=== PATIENT | female | born 1955 | race Native Hawaiian/Other Pacific Islander ===

== ENCOUNTER 2020-10-07 09:28 | Inpatient (IN) | payer SELFPAY ==
[~2020-10-07] VITALS: Ht 149.8 cm; Wt 53.6 kg
[2020-10-07] MEDS ORDERED: KETOROLAC 30 MG/ML VIAL IVP STA (09:50)
[2020-10-07] MEDS ORDERED: hydrALAZINE (APESOLINE) 20 MG/ML VIAL IV STA (09:50)
[2020-10-07] MEDS ORDERED: diphenhydrAMINE 50 MG/ML INJ (BENADRYL) IVP STA (09:50)
--- NOTE | 2020-10-07 09:58 | ED General ---
General Chief Complaint: Head/Cervical Problems Stated Complaint: HEADACHE; COVID+ Nursing Triage Note: Patient reports she tested positive for COVID-19 on Thursday, reports severe headache started yesterday. She also reports she has hypertension and is concerned this may be causing her headache. Nursing Sepsis Screen: No Definite Risk Source of Information: Patient History of Present Illness Date Seen by Provider: Oct 07, 2020 Time Seen by Provider: 09:28 Initial Comments 64-year-old female presenting with complaints of severe frontal headache since yesterday. She was tested positive for COVID-19 on Thursday, October 01. She had tried taking Tylenol but it wasn't helping. She was having trouble sleeping because of the headache. She has some phlegm and congestion from the COVID but otherwise has been doing well. She denies any high fevers, chills, nausea, vomiting, diarrhea, burning with urination. She states that the headache is worse when she is standing up. When she gets up to go the bathroom she feels like she's unsteady walking. She has no weakness or numbness to one side of her body. She just feels generally weak. She does take atenolol for her blood pressure and denies missing any doses medication. Allergies and Home Medications Allergies Coded Allergies: egg (Verified Allergy, Unknown, 10/07/20) Home Medications Atenolol 25 Mg Tablet, 25 MG PO DAILY, (Reported) Patient Home Medication List Home Medication List Reviewed: Yes Review of Systems Review of Systems Constitutional: No chills, No diaphoresis, No fever; malaise, weakness (general) EENTM: No ear pain, No blurred vision, No vision loss, No epistaxis, No nose c ongestion Respiratory: cough (mild), phlegm Cardiovascular: no symptoms reported Gastrointestinal: see HPI; No diarrhea, No nausea, No vomiting Genitourinary: no symptoms reported; No dysuria Musculoskeletal: no symptoms reported Skin: no symptoms reported Psychiatric/Neurological: See HPI, Headache; Denies Numbness, Denies Paresthesia; Weakness (general) Past Qhkmvuq-Ovyunl-Ujoyit Hx Past Med/Social Hx: Reviewed Nursing Past Med/Soc Hx Patient Social History Alcohol Use: Denies Use Recreational Drug Use: No Smoking Status: Never a Smoker 2nd Hand Smoke Exposure: No Recent Foreign Travel: No Contact w/Someone Who Travel: No Recent Infectious Disease Expo: No Recent Hopitalizations: No Physical Abuse: No Sexual Abuse: No Mistreated: No Fear: No Seasonal Allergies Seasonal Allergies: No Past Medical History Surgeries: Yes Section Respiratory: No Cardiac: Yes Hypertension Neurological: No Genitourinary: No Gastrointestinal: No Musculoskeletal: No Endocrine: Yes Diabetes, Non-Insulin dep HEENT: No Cancer: No Psychosocial: No Integumentary: No Physical Exam Vital Signs Vital Signs - First Documented 10/07/20 09:37 Temp 36.8 Pulse 76 Resp 18 B/P (MAP) 174/95 (121) Pulse Ox 99 O2 Delivery Room Air Capillary Refill : Less Than 3 Seconds Height, Weight, BMI Height: '" Weight: lbs. oz. kg; 23.00 BMI Method: General Appearance: No Apparent Distress, WD/WN, Anxious HEENT: PERRL/EOMI, Pharynx Normal Neck: Full Range of Motion, Normal Inspection, Non Tender, Supple Respiratory: Chest Non Tender, Lungs Clear, Normal Breath Sounds, No Accessory Muscle Use, No Respiratory Distress Cardiovascular: Regular Rate, Rhythm, No Murmur, Normal Peripheral Pulses Gastrointestinal: Normal Bowel Sounds, No Pulsatile Mass, Non Tender, Soft Rectal: Deferred Extremity: Normal Capillary Refill, Non Tender, No Pedal Edema Neurologic/Psychiatric: Alert, Oriented x3, No Motor/Sensory Deficits, piston maker II- XII Norm as Tested Skin: Normal Color, Warm/Dry Progress/Results/Core Measures Suspected Sepsis Recent Fever Within 48 Hours: No Infection Criteria Present: Documented Infection New/Unexplained Altered Menta: No Sepsis Screen: No Definite Risk SIRS Temperature: Pulse: 76 Respiratory Rate: 18 Laboratory Tests 10/07/20 09:50: White Blood Count 5.9 Blood Pressure 174 /95 Mean: 121 Laboratory Tests 10/07/20 09:50: Creatinine 0.48L, INR Comment 1.0, Platelet Count 211, Total Bilirubin 0.8 Results/Orders Lab Results Laboratory Tests Test 10/07/20 09:50 10/07/20 10:05 Range/Units White Blood Count 5.9 4.3-11.0 10^3/uL Red Blood Count 4.04 L 4.35-5.85 10^6/uL Hemoglobin 12.6 11.5-16.0 G/DL Hematocrit 34 L 35-52 % Mean Corpuscular Volume 85 80-99 FL Mean Corpuscular Hemoglobin 31 25-34 PG Mean Corpuscular Hemoglobin Concent 37 H 32-36 G/DL Red Cell Distribution Width 12.2 10.0-14.5 % Platelet Count 211 130-400 10^3/uL Mean Platelet Volume 8.9 7.4-10.4 FL Immature Granulocyte % (Auto) 1 % Neutrophils (%) (Auto) 67 42-75 % Lymphocytes (%) (Auto) 23 12-44 % Monocytes (%) (Auto) 8 0-12 % Eosinophils (%) (Auto) 1 0-10 % Basophils (%) (Auto) 0 0-10 % Neutrophils # (Auto) 4.0 1.8-7.8 X 10^3 Lymphocytes # (Auto) 1.4 1.0-4.0 X 10^3 Monocytes # (Auto) 0.5 0.0-1.0 X 10^3 Eosinophils # (Auto) 0.0 0.0-0.3 10^3/uL Basophils # (Auto) 0.0 0.0-0.1 10^3/uL Immature Granulocyte # (Auto) 0.0 0.0-0.1 10^3/uL Prothrombin Time 13.0 12.2-14.7 SEC INR Comment 1.0 0.8-1.4 Activated Partial Thromboplast Time 26 24-35 SEC Sodium Level 117 *L 135-145 MMOL/L Potassium Level 3.9 3.6-5.0 MMOL/L Chloride Level 82 L 98-107 MMOL/L Carbon Dioxide Level 23 21-32 MMOL/L Anion Gap 12 5-14 MMOL/L Blood Urea Nitrogen 6 L 7-18 MG/DL Creatinine 0.48 L 0.60-1.30 MG/DL Estimat Glomerular Filtration Rate > 60 BUN/Creatinine Ratio 13 Glucose Level 133 H 70-105 MG/DL Calcium Level 9.1 8.5-10.1 MG/DL Corrected Calcium 8.8 8.5-10.1 MG/DL Total Bilirubin 0.8 0.1-1.0 MG/DL Aspartate Amino Transf (AST/SGOT) 40 H 5-34 U/L Alanine Aminotransferase (ALT/SGPT) 31 0-55 U/L Alkaline Phosphatase 87 40-136 U/L C-Reactive Protein 0.11 <0.50 MG/DL Total Protein 7.0 6.4-8.2 GM/DL Albumin 4.4 3.2-4.5 GM/DL Urine Color PALE YELLOW Urine Clarity CLEAR Urine pH 8.5 5-9 Urine Specific [place] 1.015 L 1.016-1.022 Urine Protein NEGATIVE NEGATIVE Urine Glucose (UA) NEGATIVE NEGATIVE Urine Ketones NEGATIVE NEGATIVE Urine Nitrite NEGATIVE NEGATIVE Urine Bilirubin NEGATIVE NEGATIVE Urine Urobilinogen 0.2 < = 1.0 MG/DL Urine Leukocyte Esterase NEGATIVE NEGATIVE Urine RBC (Auto) 1+ H NEGATIVE Urine RBC 5-10 H /HPF Urine WBC RARE /HPF Urine Squamous Epithelial Cells 0-2 /HPF Urine Crystals PRESENT H /LPF Urine Amorphous Sediment FEW MISAEL URATES H /LPF Urine Bacteria TRACE /HPF Urine Casts NONE /LPF Urine Mucus NEGATIVE /LPF Urine Culture Indicated NO My Orders Orders - FABRIZIO LORD MD Monitor-Rhythm Ecg Trace Only (10/07/20 09:48) Ed Iv/Invasive Line Start (10/07/20 09:48) Cbc With Automated Diff (10/07/20 09:48) Comprehensive Metabolic Panel (10/07/20 09:48) Crp Fs (10/07/20 09:48) Protime With Inr (10/07/20 09:48) Partial Thromboplastin Time (10/07/20 09:48) Ns Iv 1000 Ml (Sodium Chloride 0.9%) (10/07/20 10:00) Ua Culture If Indicated (10/07/20 09:48) Ct Head Wo (10/07/20 09:48) Ketorolac Injection (Toradol Injection) (10/07/20 09:50) Diphenhydramine Injection (Benadryl Inje (10/07/20 09:50) Hydralazine Injection (Apresoline Inject (10/07/20 09:50) Vital Signs/I&O 10/07/20 10/07/20 10/07/20 10/07/20 09:37 13:00 14:00 15:00 Temp 36.8 36.4 Pulse 76 71 73 Resp 18 16 18 B/P (MAP) 174/95 (121) 141/75 144/86 (105) Pulse Ox 99 100 99 99 O2 Delivery Room Air Room Air Room Air Room Air Capillary Refill : Less Than 3 Seconds Blood Pressure Mean: 121 Progress Note #1: Progress Note Will check basic labs, urinalysis and since she is having complaint of severe headache since yesterday and feeling more unsteady when she gets up since yesterday will obtain a CT head to evaluate for any intracranial hemorrhage or process that may be contributing to her symptoms. Try Toradol 30 mg, Benadryl 25 mg both IV for her headache. Give 1 L NS for hydration in case that is contributing to her symptoms. Hydralazine 5 mg IV for her headache and blood pressure 160-170 systolic range to see if that helps lower her pressure and make any difference with the headache. Progress Note #2: Time: 10:47 Progress Note Labs show stable CBC. Chemistry with hyponatremia at 117. CT head does not show any acute significant abnormality. On recheck the patient she stated she felt better after treatment. Discussed with Dr. Looney about admission for hyponatremia and her COVID positive status. Will fluid restrict patient and give IV fluids of normal saline at 75 mls an hour. Diagnostic Imaging Diagonstic Imaging: CT Plain Films/CT/US/NM/MRI: head Comments NAME: NICK MAE [facility] REC#: [id number] PT STATUS: REG ER : 1955 PHYSICIAN: FABRIZIO LORD MD ADMIT DATE: 10/07/20/ER FS Draft Date of Exam:10/07/20 CT HEAD WO PROCEDURE: CT head without contrast. TECHNIQUE: Multiple contiguous axial images were obtained through the brain without the use of intravenous contrast. Auto Exposure Controls were utilized during the CT exam to meet ALARA standards for radiation dose reduction. INDICATION: Frontal headaches. Hypertension. Positive for COVID. FINDINGS: The ventricles are normal in size, shape, and position. There is no acute parenchymal hemorrhage, edema, or mass. There is no extra-axial mass or hemorrhage. IMPRESSION: No acute abnormality is seen. Dictated on workstation # [id number] Dict: 10/07/20 1022 Trans: 10/07/20 1028 [id number] Interpreted by: OLGA YOON MD Electronically signed by: Departure Communication (Admissions) Time/Spoke to Admitting Phy: 11:[address] Looney on-call for [facility]. We will admit for fluid restriction and normal saline at 75 ml/hr Impression Primary Impression: Frontal headache Additional Impressions: COVID-19 virus infection Elevated blood pressure reading with diagnosis of hypertension Disposition: 30 STILL A PATIENT Condition: Stable Admissions Decision to Admit Reason: Admit from ER (General) Decision to Admit/Date: Oct 07, 2020 Time/Decision to Admit Time: 11:38 Departure-Patient Inst. Referrals: NO,LOCAL PHYSICIAN (PCP/Family) Primary Care Physician FABRIZIO LORD MD Oct 07, 2020 09:58
[2020-10-07] MEDS ORDERED: NS IV 1000 ML 1,000 ML IV SCH ×2 (10:00→14:15)
[2020-10-07] MEDS ORDERED: ATEN25TA PO (10:00)
[2020-10-07 10:09] LABS: HEMATOCRIT 34 % (35-52); HEMOGLOBIN 12.6 G/DL (11.5-16.0); MEAN CORPUSCULAR HEMOGLOBIN 31 PG (25-34); MEAN CORPUSCULAR HGB CONC 37 G/DL (32-36); MEAN CORPUSCULAR VOLUME 85 FL (80-99); MEAN PLATELET VOLUME 8.9 FL (7.4-10.4); PLATELET COUNT 211 10^3/uL (130-400); WHITE BLOOD COUNT 5.9 10^3/uL (4.3-11.0)
[2020-10-07 10:10] LABS: BASOPHILS % (AUTO) 0 % (0-10); EOSINOPHILS % (AUTO) 1 % (0-10); LYMPHOCYTES # (AUTO) 1.4 X 10^3 (1.0-4.0); LYMPHOCYTES % (AUTO) 23 % (12-44); MONOCYTES # (AUTO) 0.5 X 10^3 (0.0-1.0); MONOCYTES % (AUTO) 8 % (0-12); NEUTROPHILS % (AUTO) 67 % (42-75)
[2020-10-07 10:21] LABS: BILIRUBIN,URINE NEGATIVE (NEGATIVE); CLARITY,URINE CLEAR; COLOR,URINE PALE YELLOW; GLUCOSE, URINE (UA) NEGATIVE (NEGATIVE); KETONES,URINE NEGATIVE (NEGATIVE); LEUKOCYTE ESTERASE ,URINE NEGATIVE (NEGATIVE); NITRITE,URINE NEGATIVE (NEGATIVE); PH,URINE 8.5 (5-9); PROTEIN,URINE NEGATIVE (NEGATIVE)
[2020-10-07 10:22] LABS: BACTERIA,URINE TRACE /HPF; SQUAMOUS EPITHELIAL CELL,UR 0-2 /HPF; WBC,URINE RARE /HPF
[2020-10-07 10:23] LABS: AMORPHOUS SEDIMENT,UR FEW AMOR URATES /LPF
[2020-10-07 10:23] LABS: POTASSIUM 3.9 MMOL/L (3.6-5.0)
[2020-10-07 10:24] LABS: ALANINE AMINOTRANSFERASE 31 U/L (0-55); ALBUMIN 4.4 GM/DL (3.2-4.5); ALKALINE PHOSPHATASE 87 U/L (40-136); BILIRUBIN,TOTAL 0.8 MG/DL (0.1-1.0); BUN/CREATININE RATIO 13; CALCIUM 9.1 MG/DL (8.5-10.1); CARBON DIOXIDE 23 MMOL/L (21-32); CREATININE SERUM 0.48 MG/DL (0.60-1.30); GFR ESTIMATED > 60; GLUCOSE 133 MG/DL (70-105)
[2020-10-07 10:25] LABS: CHLORIDE 82 MMOL/L (98-107); SODIUM 117 MMOL/L (135-145)
--- NOTE | 2020-10-07 10:30 | Diagnostic Imaging Report ---
PROCEDURE: CT head without contrast. TECHNIQUE: Multiple contiguous axial images were obtained through the brain without the use of intravenous contrast. Auto Exposure Controls were utilized during the CT exam to meet ALARA standards for radiation dose reduction. INDICATION: Frontal headaches. Hypertension. Positive for COVID. FINDINGS: The ventricles are normal in size, shape, and position. There is no acute parenchymal hemorrhage, edema, or mass. There is no extra-axial mass or hemorrhage. IMPRESSION: No acute abnormality is seen. Dictated by: Dictated on workstation # [id number]
--- NOTE | 2020-10-07 14:07 | History & Physical-Hospitalist ---
History of Present Illness HPI/Chief Complaint CC: Hyponatremia HPI: This is a 64yo clinic patient of [facility] who was dx with COVID 7 days ago and presented to the ER with ANGLIN and fatigue and found to have sodium level at 117. Patient was deemed in need of admit for fluid restriction and IVF of NS. No med use to cause hyponatremia. No O2 used. Source: patient, RN/MD Exam Limitations: clinical condition Date Seen 10/07/20 Time Seen by a Provider: 14:00 Attending Physician Jasmin Looney DO PCP No,Local Physician Referring Physician Date of Admission Oct 07, 2020 at 13:50 Home Medications & Allergies Home Medications Reviewed patient Home Medication Reconciliation performed by pharmacy medication reconciliations facility environmental technician and/or nursing. Patients Allergies have been reviewed. Allergies Allergies Coded Allergies egg (Verified Allergy, Unknown, 10/07/20) Past Hgdhkkz-Stutyh-Whgxei Hx Past Med/Social Hx: Reviewed Nursing Past Med/Soc Hx, Reviewed and Corrections made Patient Social History Marrital Status: Alcohol Use: Denies Use Recreational Drug Use: No Smoking Status: Never a Smoker 2nd Hand Smoke Exposure: No Recent Foreign Travel: No Contact w/other who traveled: No Recent Hopitalizations: No Recent Infectious Disease Expo: No Seasonal Allergies Seasonal Allergies: No Past Medical History Surgeries: Section Cardiac: Hypertension Endocrine: Diabetes, Non-Insulin dep Review of Systems Constitutional: see HPI, malaise, weakness Psychiatric/Neurological: Headache Physical Exam Physical Exam Vital Signs Vital Signs - First Documented 10/07/20 09:37 Temp 36.8 Pulse 76 Resp 18 B/P (MAP) 174/95 (121) Pulse Ox 99 O2 Delivery Room Air Capillary Refill : Less Than 3 Seconds Height, Weight, BMI Height: '" Weight: lbs. oz. kg; 23.00 BMI Method: General Appearance: No Apparent Distress Eyes: Right Eye Normal Inspection, Right Eye PERRL HEENT: PERRL/EOMI, TMs Normal, Normal ENT Inspection, Pharynx Normal, Moist Mucous Membranes Neck: Full Range of Motion, Normal Inspection, Non Tender Respiratory: Chest Non Tender, Lungs Clear, Normal Breath Sounds, No Accessory Muscle Use, No Respiratory Distress Cardiovascular: Regular Rate, Rhythm, No Edema, No Gallop, No JVD, No Murmur, Normal Peripheral Pulses Gastrointestinal: Normal Bowel Sounds, No Organomegaly, No Pulsatile Mass, Non Tender, Soft Back: Normal Inspection, No CVA Tenderness, No Vertebral Tenderness Extremity: Normal Capillary Refill, Normal Inspection, Normal Range of Motion, Non Tender, No Calf Tenderness, No Pedal Edema Neurologic/Psychiatric: Alert, Oriented x3, No Motor/Sensory Deficits, Normal Mood/Affect Skin: Normal Color, Warm/Dry Lymphatic: No Adenopathy Results Results/Procedures Labs Laboratory Tests 10/07/20 09:50 Patient resulted labs reviewed. Assessment/Plan Admission Diagnosis Assessment: Hyponatremia 117 ANGLIN COVID-19 HTN Plan: Fluid restriction NS at 75cc/hr Lasix 20mg IV x 1 Admission Status: Inpatient Order (span 2 midnights) Reason for Inpatient Admission: severe hyponatremia Diagnosis/Problems Diagnosis/Problems (1) Hyponatremia (2) Hypertension (3) COVID-19 virus infection Status: Acute JASMIN LOONEY DO Oct 07, 2020 14:07
[2020-10-07] MEDS ORDERED: DOCUSATE SODIUM 100 MG (COLACE) CAP PO PRN (14:15)
[2020-10-07] MEDS ORDERED: CALCIUM CARBONATE 500 MG (TUMS) TAB.CHEW PO PRN (14:15)
[2020-10-07] MEDS ORDERED: ONDANSETRON 4 MG (ZOFRAN) ORAL DISSOLVE TAB PO PRN (14:15)
[2020-10-07] MEDS ORDERED: LOPERAMIDE 2 MG (IMODIUM) TABLET PO PRN (14:15)
[2020-10-07] MEDS ORDERED: HYDROcodone/APAP 5 MG/325 MG (LORTAB) TAB PO PRN (14:15)
[2020-10-07] MEDS ORDERED: MELATONIN 3 MG TABLET PO PRN (14:15)
[2020-10-07] MEDS ORDERED: ACETAMINOPHEN 325 MG TABLET PO PRN (14:15)
[2020-10-07] MEDS ORDERED: FUROSEMIDE 40 MG/4 ML INJ (LASIX) IVP NR (14:15)
[2020-10-07] MEDS ORDERED: ACETAMINOPHEN 500 MG TAB (TYLENOL) PO PRN (14:15)
[2020-10-07] MEDS ORDERED: CATHETER FLUSH 10 ML SYR IV PRN (14:15)
[2020-10-07] MEDS ORDERED: diphenhydrAMINE 25 MG TAB (BENADRYL) PO PRN (14:15)
[2020-10-07] MEDS ORDERED: ONDANSETRON 4 MG/2 ML (SDV) Z0FRAN IVP PRN (14:15)
[2020-10-07] MEDS ORDERED: ONDANSETRON 4 MG/2 ML (SDV) Z0FRAN IV PRN (14:15)
[2020-10-07] MEDS: NS IV 1000 ML 1,000 ML IV SCH (14:43)
[2020-10-07 15:00] VITALS: BP 144/86
[2020-10-07 17:04] VITALS: BP 144/86
[2020-10-07 19:34] VITALS: BP 147/82
[2020-10-07] MEDS: SENNA W/DOCUSATE (SENOKOT S) TABLET PO SCH (21:06)
[2020-10-07] MEDS: ENOXAPARIN 40 MG/0.4 ML (LOVENOX) SYR SC SCH (21:07)
[2020-10-08 00:14] VITALS: BP 120/69
[2020-10-08] MEDS: NS IV 1000 ML 1,000 ML IV SCH (03:55)
[2020-10-08 04:00] VITALS: BP 103/63
--- NOTE | 2020-10-08 05:59 | Progress Note - Hospitalist ---
Subjective HPI/CC On Admission Date Seen by Provider: Oct 08, 2020 Time Seen by Provider: 10:00 CC: Hyponatremia HPI: This is a 64yo clinic patient of [facility] who was dx with COVID 7 days ago and presented to the ER with ANGLIN and fatigue and found to have sodium level at 117. Patient was deemed in need of admit for fluid restriction and IVF of NS. No med use to cause hyponatremia. No O2 used. Subjective/Events-last exam Sodium level is much improved at 131 [place]ock IV fluid Room air currently even though she is Covid-positive Effexor 37.5 daily, and Xanax will be ordered since her is upstairs on a ventilator Review of Systems General: Fatigue, Malaise Neurological: Weakness, Incoordination Objective Exam Vital Signs Vital Signs Date Time Temp Pulse Resp B/P (MAP) Pulse Ox O2 Delivery O2 Flow Rate FiO2 10/09/20 08:00 37.0 69 22 131/74 (93) 94 Room Air Capillary Refill : Less Than 3 Seconds General Appearance: No Apparent Distress, WD/WN, Chronically ill Respiratory: Chest Non Tender, Lungs Clear, Normal Breath Sounds, No Accessory Muscle Use, No Respiratory Distress Cardiovascular: Regular Rate, Rhythm, No Edema, No Gallop, No JVD, No Murmur, Normal Peripheral Pulses Results/Procedures Lab Patient resulted labs reviewed. Assessment/Plan Assessment and Plan Assess & Plan/Chief Complaint Assessment: Hyponatremia 117 ANGLIN COVID-19 HTN Plan: Fluid restriction NS at 75cc/hr Lasix 20mg IV x 1 10/08/20: Monitor closely Sodium level monitoring Diagnosis/Problems Diagnosis/Problems (1) Hyponatremia (2) Hypertension (3) COVID-19 virus infection Status: Acute Clinical Quality Measures DVT/VTE Risk/Contraindication: Risk Factor Score Per Nursin RFS Level Per Nursing on Admit: 2=Moderate LILLIAM LUNA DO Oct 08, 2020 05:59
[2020-10-08 06:36] LABS: BASOPHILS % (AUTO) 0 % (0-10); EOSINOPHILS # (AUTO) 0.1 10^3/uL (0.0-0.3); EOSINOPHILS % (AUTO) 3 % (0-10); HEMATOCRIT 35 % (35-52); HEMOGLOBIN 12.3 g/dL (11.5-16.0); LYMPHOCYTES # (AUTO) 1.7 10^3/uL (1.0-4.0); LYMPHOCYTES % (AUTO) 30 % (12-44); MEAN CORPUSCULAR HEMOGLOBIN 31 pg (25-34); MEAN CORPUSCULAR HGB CONC 35 g/dL (32-36); MEAN CORPUSCULAR VOLUME 88 fL (80-99); MEAN PLATELET VOLUME 9.7 fL (9.0-12.2); MONOCYTES # (AUTO) 0.7 10^3/uL (0.0-1.0); MONOCYTES % (AUTO) 11 % (0-12); NEUTROPHILS # (AUTO) 3.2 10^3/uL (1.8-7.8); NEUTROPHILS % (AUTO) 56 % (42-75); PLATELET COUNT 185 10^3/uL (130-400); WHITE BLOOD COUNT 5.7 10^3/uL (4.3-11.0)
[2020-10-08 06:51] LABS: ALBUMIN 3.6 GM/DL (3.2-4.5); CHLORIDE 101 MMOL/L (98-107); POTASSIUM 3.7 MMOL/L (3.6-5.0); SODIUM 131 MMOL/L (135-145)
[2020-10-08 06:52] LABS: CALCIUM 8.5 MG/DL (8.5-10.1)
[2020-10-08 06:53] LABS: GLUCOSE 82 MG/DL (70-105)
[2020-10-08 06:54] LABS: TOTAL PROTEIN 6.5 GM/DL (6.4-8.2)
[2020-10-08 06:55] LABS: BILIRUBIN,TOTAL 0.6 MG/DL (0.1-1.0); CARBON DIOXIDE 19 MMOL/L (21-32)
[2020-10-08 06:57] LABS: ALKALINE PHOSPHATASE 73 U/L (40-136); CREATININE SERUM 0.73 MG/DL (0.60-1.30); GFR ESTIMATED > 60
[2020-10-08 06:58] LABS: BUN/CREATININE RATIO 19
[2020-10-08 07:00] LABS: ALANINE AMINOTRANSFERASE 42 U/L (0-55)
[2020-10-08] MEDS: ENOXAPARIN 40 MG/0.4 ML (LOVENOX) SYR SC SCH ×2 (08:19→19:31)
[2020-10-08 08:30] VITALS: BP 101/56
[2020-10-08] MEDS: SENNA W/DOCUSATE (SENOKOT S) TABLET PO SCH ×2 (09:21→19:31)
[2020-10-08] MEDS: ALPRAZolam 0.25 MG (XANAX) TAB PO PRN (10:26)
[2020-10-08] MEDS ORDERED: VENlafaxine 37.5 MG (EFFEXOR) TAB PO SCH (11:00)
[2020-10-08 11:53] VITALS: BP 100/64
--- NOTE | 2020-10-08 14:32 | Physician Query Clarification ---
PQ-Link Manifestation-Etiology Admission/Discharge Admission Date: Oct 07, 2020 at 13:50 Discharge Date: Dr. Looney, The medical record reflects the following clinical scenario: History/Risk Factors: Covid, Hyponatremia, HTN Clinical Findings: Sodium 117, Covid positive 7 days ago, headache, fatigue Treatment: fluid resusitation IVF NS Question: Can you specify if the hyponatremia is due to/associated with Covid? Please document a response in the Progress Note or Discharge Summary. 1. Yes - hyponatremia is due to/associated with Covid. 2. No - hyponatremia is not due to/associated with Covid. 3. Other, with explanation of the clinical findings. 4. Clinically undetermined, no explanation for the clinical findings. PHYSICIAN RESPONSE Manifestation due to/assoic: Yes Please remember a lack of response to the above will prompt a phone page by CDI/Coding staff. In responding to this query, please exercise your independent professional judgment. The purpose of this communication is to more accurately reflect the complexity of your patients condition. The fact that a question is asked does not imply that any particular answer is desired or expected. Thank you for your timely response to this clarification. Requestors name: Lois THIS PHYSICIAN QUERY FORM IS A PERMANENT PART OF THE MEDICAL RECORD LOIS JULIAN Oct 08, 2020 14:32 LILLIAM LOONEY DO Oct 08, 2020 19:49
--- NOTE | 2020-10-08 15:34 | NUR ---
"RD ASSESSMENT PMHx: HTN; DM; PT INTERACTION: Note pt is currently in COVID isolation, per chart review. Note all diet information for nutrition assessment is per Christina HERNANDEZ, or per chart review. Christina states current appetite appears good. Note avg PO intake 50% x2meal, per chart review. Christina states no issues with nausea, vomiting, constipation, or diarrhea that she is aware of. Note no BM has been recorded, and pt currently on bowel regimen of senna BID, per chart review. Note unable to determine recent wt hx, per chart review. Note unable to determine current level of DM management, and unable to determine recent HbA1c, per chart review. Note pt currently on 800ml fluid restriction. Est. kcal needs: 1773-2579 kcal | 25-30 kcal/kg Est. Pro needs: 43-54 g Pro | 0.8-1.0 g Pro/kg PES STATEMENT: Inadequate oral intake (NI-2.1) related to loss of appetite, as evidenced by chart review, and avg PO intake 50% x2meal. INTERVENTION: Continue with current diet order of Regular diet. Pt may benefit from consistent CHO restriction, as pt has hx of DM. Would not recommend nutrition supplementation at this time, as pt has a fluid restriction. Would encourage pt to eat when able. Did not offer diet education on DM management d/t isolation precautions. Will continue to follow and reassess as pt needs, intake, and status change. Chelsea ESPINOZA MS RD LD [phone] cell"
[2020-10-08 16:01] VITALS: BP 150/79
--- NOTE | 2020-10-08 16:29 | NUR ---
PATIENT REQUESTED TO HAVE BLOOD SUGAR TESTED, BS 99, STATES SHE TAKES HER BS AT HOME, PATIENT IS NON INSULIN DEPENDENT DIABETIC, C/O NAUSEA, ZOFRAN GIVEN, IV, STARTED EFFEXOR TODAY, STATES SHE DOES NOT LIKE THE WAY IT MADE HER FEEL, WILL NOTIFY DR LUNA.
[2020-10-08 19:40] VITALS: BP 140/81
[2020-10-08] MEDS: inSUlin ASPART (NovoLOG) 1 UNIT/0.01 ML (CHARGE PER UNIT) SC SCH (22:06)
[2020-10-09 00:20] VITALS: BP 136/79
[2020-10-09 08:00] VITALS: BP 131/74
[2020-10-09] MEDS: ATENOLOL 25 MG (TENORMIN) TAB PO SCH (08:27)
[2020-10-09] MEDS: SENNA W/DOCUSATE (SENOKOT S) TABLET PO SCH ×2 (08:27→20:14)
[2020-10-09] MEDS: ENOXAPARIN 40 MG/0.4 ML (LOVENOX) SYR SC SCH ×2 (08:28→20:14)
[2020-10-09 09:20] LABS: BASOPHILS % (AUTO) 0 % (0-10); EOSINOPHILS # (AUTO) 0.1 10^3/uL (0.0-0.3); EOSINOPHILS % (AUTO) 1 % (0-10); HEMATOCRIT 37 % (35-52); HEMOGLOBIN 12.9 g/dL (11.5-16.0); LYMPHOCYTES # (AUTO) 1.4 10^3/uL (1.0-4.0); LYMPHOCYTES % (AUTO) 26 % (12-44); MEAN CORPUSCULAR HEMOGLOBIN 31 pg (25-34); MEAN CORPUSCULAR HGB CONC 35 g/dL (32-36); MEAN CORPUSCULAR VOLUME 88 fL (80-99); MEAN PLATELET VOLUME 8.8 fL (9.0-12.2); MONOCYTES # (AUTO) 0.4 10^3/uL (0.0-1.0); MONOCYTES % (AUTO) 7 % (0-12); NEUTROPHILS # (AUTO) 3.6 10^3/uL (1.8-7.8); NEUTROPHILS % (AUTO) 64 % (42-75); PLATELET COUNT 240 10^3/uL (130-400); WHITE BLOOD COUNT 5.5 10^3/uL (4.3-11.0)
[2020-10-09 09:29] LABS: ALBUMIN 4.1 GM/DL (3.2-4.5); CHLORIDE 93 MMOL/L (98-107); POTASSIUM 3.4 MMOL/L (3.6-5.0); SODIUM 126 MMOL/L (135-145)
[2020-10-09 09:30] LABS: CALCIUM 8.7 MG/DL (8.5-10.1)
[2020-10-09 09:31] LABS: GLUCOSE 207 MG/DL (70-105); TOTAL PROTEIN 7.2 GM/DL (6.4-8.2)
[2020-10-09 09:33] LABS: BILIRUBIN,TOTAL 0.5 MG/DL (0.1-1.0); CARBON DIOXIDE 23 MMOL/L (21-32)
[2020-10-09 09:35] LABS: ALKALINE PHOSPHATASE 84 U/L (40-136); CREATININE SERUM 0.83 MG/DL (0.60-1.30); GFR ESTIMATED > 60
[2020-10-09] MEDS: inSUlin ASPART (NovoLOG) 1 UNIT/0.01 ML (CHARGE PER UNIT) SC SCH ×2 (09:35→20:14)
[2020-10-09 09:36] LABS: BUN/CREATININE RATIO 12
[2020-10-09 09:38] LABS: ALANINE AMINOTRANSFERASE 42 U/L (0-55)
--- NOTE | 2020-10-09 10:13 | Progress Note - Hospitalist ---
Subjective HPI/CC On Admission Date Seen by Provider: Oct 09, 2020 Time Seen by Provider: 10:30 CC: Hyponatremia HPI: This is a 64yo clinic patient of [facility] who was dx with COVID 7 days ago and presented to the ER with ANGLIN and fatigue and found to have sodium level at 117. Patient was deemed in need of admit for fluid restriction and IVF of NS. No med use to cause hyponatremia. No O2 used. Subjective/Events-last exam Pt was set to go home but her sodium level dropped again at 126 Fluid restriction at 800cc a day and I will go ahead and start sodium tablets twice a day Checking random spot sodium and urine osmolality Review of Systems General: Fatigue Objective Exam Vital Signs Vital Signs Date Time Temp Pulse Resp B/P (MAP) Pulse Ox O2 Delivery O2 Flow Rate FiO2 10/09/20 23:21 36.6 64 20 127/66 (86) 97 Room Air Capillary Refill : Less Than 3 Seconds General Appearance: No Apparent Distress, WD/WN, Anxious, Chronically ill Respiratory: Chest Non Tender, Lungs Clear, Normal Breath Sounds, No Accessory Muscle Use, No Respiratory Distress Cardiovascular: Regular Rate, Rhythm, No Edema, No Gallop, No JVD, No Murmur, Normal Peripheral Pulses Neurologic/Psychiatric: Alert, Oriented x3, No Motor/Sensory Deficits, Normal Mood/Affect Results/Procedures Lab Laboratory Tests 10/09/20 09:09 Patient resulted labs reviewed. Assessment/Plan Assessment and Plan Assess & Plan/Chief Complaint Assessment: Hyponatremia 117 ANGLIN COVID-19 HTN Plan: Fluid restriction NS at 75cc/hr Lasix 20mg IV x 1 10/08/20: Monitor closely Sodium level monitoring 10/09/20: Salt tablets Monitor sodium level BP management Diagnosis/Problems Diagnosis/Problems (1) Hyponatremia (2) Hypertension (3) COVID-19 virus infection Status: Acute Clinical Quality Measures DVT/VTE Risk/Contraindication: Risk Factor Score Per Nursin RFS Level Per Nursing on Admit: 2=Moderate LILLIAM LUNA DO Oct 09, 2020 10:13
[2020-10-09] MEDS ORDERED: SODIUM CHLORIDE 1 GM TABLET PO NR (10:15)
[2020-10-09 16:24] VITALS: BP 169/80
[2020-10-09 17:09] VITALS: BP 177/85
--- NOTE | 2020-10-09 18:23 | NUR ---
Informed Dr. Looney that the patient BP was elevated at this time.
[2020-10-09] MEDS ORDERED: amLODIPine 5 MG (NORVASC) TAB PO ONE (18:30)
[2020-10-09] MEDS ORDERED: amLODIPine 5 MG (NORVASC) TAB ONE (18:34)
[2020-10-09] MEDS: ALPRAZolam 0.25 MG (XANAX) TAB PO PRN (18:52)
[2020-10-09] MEDS: SODIUM CHLORIDE 1 GM TABLET PO SCH (20:09)
[2020-10-09 20:16] VITALS: BP 129/71
[2020-10-09] MEDS ORDERED: hydrALAZINE (APRESOLINE) 25 MG TAB PO PRN (20:30)
[2020-10-09 23:21] VITALS: BP 127/66
[2020-10-10 06:19] LABS: BASOPHILS % (AUTO) 0 % (0-10); EOSINOPHILS # (AUTO) 0.1 10^3/uL (0.0-0.3); EOSINOPHILS % (AUTO) 2 % (0-10); HEMATOCRIT 37 % (35-52); HEMOGLOBIN 13.2 g/dL (11.5-16.0); LYMPHOCYTES # (AUTO) 1.7 10^3/uL (1.0-4.0); LYMPHOCYTES % (AUTO) 27 % (12-44); MEAN CORPUSCULAR HEMOGLOBIN 32 pg (25-34); MEAN CORPUSCULAR HGB CONC 36 g/dL (32-36); MEAN CORPUSCULAR VOLUME 88 fL (80-99); MONOCYTES # (AUTO) 0.6 10^3/uL (0.0-1.0); MONOCYTES % (AUTO) 10 % (0-12); NEUTROPHILS # (AUTO) 3.9 10^3/uL (1.8-7.8); NEUTROPHILS % (AUTO) 60 % (42-75); PLATELET COUNT 215 10^3/uL (130-400); WHITE BLOOD COUNT 6.4 10^3/uL (4.3-11.0)
[2020-10-10 06:37] LABS: ALBUMIN 4.1 GM/DL (3.2-4.5); CHLORIDE 96 MMOL/L (98-107); POTASSIUM 4.1 MMOL/L (3.6-5.0); SODIUM 130 MMOL/L (135-145)
[2020-10-10 06:38] LABS: CALCIUM 9.2 MG/DL (8.5-10.1)
[2020-10-10 06:39] LABS: GLUCOSE 99 MG/DL (70-105); TOTAL PROTEIN 7.3 GM/DL (6.4-8.2)
[2020-10-10 06:40] LABS: CARBON DIOXIDE 22 MMOL/L (21-32)
[2020-10-10 06:41] LABS: BILIRUBIN,TOTAL 0.7 MG/DL (0.1-1.0)
[2020-10-10 06:42] LABS: ALKALINE PHOSPHATASE 76 U/L (40-136)
[2020-10-10 06:43] LABS: CREATININE SERUM 0.76 MG/DL (0.60-1.30); GFR ESTIMATED > 60
[2020-10-10 06:44] LABS: BUN/CREATININE RATIO 12
[2020-10-10 06:46] LABS: ALANINE AMINOTRANSFERASE 40 U/L (0-55)
[2020-10-10 08:05] VITALS: BP 117/67
[2020-10-10] MEDS ORDERED: amLODIPine 5 MG (NORVASC) TAB PO SCH (09:00)
[2020-10-10] MEDS: inSUlin ASPART (NovoLOG) 1 UNIT/0.01 ML (CHARGE PER UNIT) SC SCH (09:50)
[2020-10-10] MEDS: ATENOLOL 25 MG (TENORMIN) TAB PO SCH (09:51)
[2020-10-10] MEDS: SENNA W/DOCUSATE (SENOKOT S) TABLET PO SCH (09:52)
[2020-10-10] MEDS: ENOXAPARIN 40 MG/0.4 ML (LOVENOX) SYR SC SCH (09:52)
[2020-10-10] MEDS: SODIUM CHLORIDE 1 GM TABLET PO SCH (09:52)
[2020-10-10] MEDS ORDERED: AMLO-250 PO (10:49)
[2020-10-10] MEDS ORDERED: NF-NACL1GT PO (10:49)
[2020-10-10] MEDS ORDERED: ALPR.25T PO (10:49)
--- NOTE | 2020-10-10 10:51 | Discharge Summary ---
Discharge Summary Hospital Course Was the Problem List Reviewed?: Yes Problems/Dx: (1) Hyponatremia (2) Hypertension (3) COVID-19 virus infection Status: Acute Hospital Course Date of Admission: Oct 07, 2020 at 13:50 Admission Diagnosis : Family Physician/Provider: No,Local Physician Date of Discharge: 10/10/20 Discharge Diagnosis: Hyponatremia, COVID-19, HTN, anxiety Hospital Course: Hospital course: Pt had a short hospital course, she was admitted for severe hyponatremia of 117 with a Covid diagnosis but did not require any oxygen supplementation and chest X-ray was clear. Pt overall dealt well with the fluid restriction. She was started on salt tablets, everything showed evidence of Covid-19 causing the hyponatremia but will have her labs checked in one week and will also Norvasc added to her Atenolol for BP control. Labs and Pending Lab Test: Laboratory Tests 10/09/20 11:15: Urine Osmolality 598, Urine Random Sodium 116 10/09/20 16:27: Glucometer 126H 10/09/20 20:12: Glucometer 96 10/10/20 05:53: White Blood Count 6.4, Red Blood Count 4.19, Hemoglobin 13.2, Hematocrit 37, Mean Corpuscular Volume 88, Mean Corpuscular Hemoglobin 32, Mean Corpuscular Hemoglobin Concent 36, Red Cell Distribution Width 12.7, Platelet Count 215, Rosette n Platelet Volume 9.0, Immature Granulocyte % (Auto) 1, Neutrophils (%) (Auto) 60, Lymphocytes (%) (Auto) 27, Monocytes (%) (Auto) 10, Eosinophils (%) (Auto) 2, Basophils (%) (Auto) 0, Neutrophils # (Auto) 3.9, Lymphocytes # (Auto) 1.7, Monocytes # (Auto) 0.6, Eosinophils # (Auto) 0.1, Basophils # (Auto) 0.0, Immature Granulocyte # (Auto) 0.1, Sodium Level 130L, Potassium Level 4.1, Chloride Level 96L, Carbon Dioxide Level 22, Anion Gap 12, Blood Urea Nitrogen 9, Creatinine 0.76, Estimat Glomerular Filtration Rate > 60, BUN/Creatinine Ratio 12, Glucose Level 99, Calcium Level 9.2, Corrected Calcium 9.1, Total Bilirubin 0.7, Aspartate Amino Transf (AST/SGOT) 38H, Alanine Aminotransferase (ALT/SGPT) 40, Alkaline Phosphatase 76, Total Protein 7.3, Albumin 4.1 10/10/20 09:48: Glucometer 176H Home Meds Active Sodium Chloride 1 Gm Tab 1 Gm PO BID Xanax Tablet (Alprazolam) 0.25 Mg Tab 0.25 Mg PO Q8H PRN Amlodipine Besylate 5 Mg Tablet 5 Mg PO DAILY Reported Atenolol 25 Mg Tablet 25 Mg PO DAILY Assessment/Pt Instructions [facility] 1 week Discharge Planning: <30 minutes discharge planning Discharge Physical Examination Vital Signs Vital Signs Date Time Temp Pulse Resp B/P (MAP) Pulse Ox O2 Delivery O2 Flow Rate FiO2 10/10/20 09:00 Room Air 10/10/20 08:05 36.6 70 20 117/67 (84) 98 General Appearance: No Apparent Distress, WD/WN Respiratory: Lungs Clear Cardiovascular: Regular Rate, Rhythm Allergies: Coded Allergies: egg (Verified Allergy, Unknown, 10/07/20) Discharge Summary Date of Admission Oct 07, 2020 at 13:50 Date of Discharge Discharge Date: Oct 10, 2020 Admission Diagnosis Assessment: Hyponatremia 117 ANGLIN COVID-19 HTN Plan: Fluid restriction NS at 75cc/hr Lasix 20mg IV x 1 Discharge Diagnosis Assessment: Hyponatremia 117 ANGLIN COVID-19 HTN Plan: Fluid restriction NS at 75cc/hr Lasix 20mg IV x 1 10/08/20: Monitor closely Sodium level monitoring 10/09/20: Salt tablets Monitor sodium level BP management (1) Hyponatremia (2) Hypertension (3) COVID-19 virus infection Status: Acute Clinical Quality Measures DVT/VTE Risk/Contraindication: Risk Factor Score Per Nursin RFS Level Per Nursing on Admit: 2=Moderate LILLIAM LUNA DO Oct 10, 2020 10:51
[2020-10-10 14:45] VITALS: BP 117/67
== END 2020-10-10 14:45 | disposition home or self-care (01) | DRG 178 ==
LOC: ER FS 09:29 → 4TH 13:50
PROVIDERS: ADMIT Internal Medicine; ATTEND Internal Medicine
DX: U07.1 COVID-19 (principal); E87.1 Hypo-osmolality and hyponatremia; I10 Essential (primary) hypertension; R51.9 Headache, unspecified; F41.9 Anxiety disorder, unspecified; Z91.012 Allergy to eggs; Z73.0 Burn-out
CPT/HCPCS: 36415; 70450; 80053; 81000; 82962; 83935; 84300; 85025; 85610; 85730; 86141; 93041; 96361; 96374; 96375